=== PATIENT | female | born 1940 | race Caucasian/White ===

== ENCOUNTER 2016-09-24 16:55 | Emergency (ER) | payer MEDICARE ==
[2016-09-24 17:48] VITALS: BP 114/62
--- NOTE | 2016-09-24 18:23 | UC ---
Skin Complaint HPI - HPI Summary HPI Summary: 76 y/o female presents to the urgent care c/o of a rash in her RT thigh since last last night. Pt reports her symptoms started 4 days ago with MICHAELS, fatigue and 1 episode of vomiting yesterday. She has taking Alive and symptoms have improve. Now she is concern with Lyme. She can only recall a tick bite 1 year ago. Pt denies fever, SOB, chest pain, diarrhea, urinary symptoms. Pt has not other complains. - History of Current Complaint Chief Complaint: UCGeneralIllness Time Seen by Provider: 09/24/16 18:07 Stated Complaint: FEVER,HEADACHE,BUG BITE W RASH Hx Obtained From: Patient Hx Last Menstrual Period: menopausal ?: No Onset/Duration: Sudden Onset, Lasting Days, Still Present Skin Exposure Onset/Duration: Days Ago Timing: Constant Onset Severity: Mild Current Severity: Moderate Pain Intensity: 0 Pain Scale Used: 0-10 Numeric Location: Other - RT upper thigh with a circular rash. Character: Swelling - mild, Redness Aggravating: Nothing Alleviating: Nothing - Allergy/Home Medications Allergies/Adverse Reactions: Allergies Allergy/AdvReac Type Severity Reaction Status Date / Time No Known Allergies Allergy Verified 09/24/16 17:42 Home Medications: Home Medications Naproxen Sodium [Naproxen Sodium 220 mg] 440 mg PO 09/24/16 [History] Review of Systems Constitutional: Fatigue Skin: Rash - on RT thigh Eyes: Negative ENT: Negative Respiratory: Negative Cardiovascular: Negative Gastrointestinal: Negative Genitourinary: Negative Motor: Negative Neurovascular: Negative Musculoskeletal: Arthralgia Neurological: Headache - past 3 days Psychological: Negative All Other Systems Reviewed And Are Negative: Yes PMH/Surg Hx/FS Hx/Imm Hx Previously Healthy: Yes - Surgical History Surgical History: None - Family History Known Family History: Positive: None - Social History Occupation: Retired Lives: With Family Alcohol Use: Weekly Substance Use Type: None Smoking Status (MU): Never Smoked Tobacco Physical Exam Triage Information Reviewed: Yes Appearance: Well-Appearing, No Pain Distress, Well-Nourished Vital Signs: Initial Vital Signs Temp 98.6 F 09/24/16 17:37 Pulse 73 09/24/16 17:37 Resp 18 09/24/16 17:37 BP 114/62 09/24/16 17:37 Pulse Ox 97 09/24/16 17:37 Vital Signs Reviewed: Yes Eye Exam: Normal Eyes: Positive: Conjunctiva Clear - PERRLA, EOMI, fundi grossly normal ENT Exam: Normal ENT: Positive: Normal ENT inspection, Pharynx normal, TMs normal Dental Exam: Normal Neck exam: Normal Neck: Positive: Supple, Nontender, No Lymphadenopathy Respiratory Exam: Normal Respiratory: Positive: Chest non-tender, Lungs clear, Normal breath sounds Cardiovascular Exam: Normal Cardiovascular: Positive: RRR, No Murmur, Pulses Normal, Brisk Capillary Refill Abdominal Exam: Normal Abdomen Description: Positive: Nontender, No Organomegaly, Soft. Negative: CVA Tenderness (R), CVA Tenderness (L) Bowel Sounds: Positive: Present Musculoskeletal Exam: Normal Musculoskeletal: Positive: Strength Intact, ROM Intact, No Edema Neurological Exam: Normal Neurological: Positive: Alert - A&Ox3 Psychological Exam: Normal Skin: Positive: rashes - RT thight with erythematous patche w/ central clearing , classical bull's eye eruption. non tender to palpation. Size [id number]. Course/Dx - Course Course Of Treatment: 76 y/o female presents to the urgent care c/o of a rash in her RT thigh since last last night. Pt reports her symptoms started 4 days ago with MICHAELS, fatigue and 1 episode of vomiting yesterday. She has taking Alive and symptoms have improve. Now she is concern with Lyme. She can only recall a tick bite 1 year ago. Pt denies fever, SOB, chest pain, diarrhea, urinary symptoms. Hx obtained. PE abnormal findings:RT thight with erythematous patche w/ central clearing, classical bull's eye eruption. non tender to palpation. Size [id number]. Most likely Erythema Migrans. Lyme Serology ordered. Pt Rx Doxycycline 100mg PO BID x 21 days. Advised even if Lyme Serology returns negative to take full course of ABX. F/u with PCP for further evaluation and treatment. Pt understood and agreed. Left the clinic ambulating. - Differential Diagnoses - Skin Complaint Differential Diagnoses: Allergic Reaction, Cellulitis, MRSA, Tick Born Illness, Urticaria - Diagnoses Provider Diagnoses: 1-Lyme disease Discharge - Discharge Plan Condition: Stable Disposition: HOME Prescriptions: DOXYcycline CAP(*) [DOXYcycline 100MG CAP(*)] 100 mg PO BID #42 cap Patient Education Materials: Lyme Disease (ED) Referrals: Salomon Del Valle MD [Primary Care Provider] - 2 Weeks Additional Instructions: Please take medications as instructed and finish the full course of treatment despite lab result. F/u with your PCP for further evaluation and treatment. You will receive a call from as with the results. Continue taking Advil prn if Headache returns.
[2016-09-24] MEDS ORDERED: DOXYcycline CAP(*) 100 MG PO ONE (18:30)
[2016-09-27 12:11] LABS: Lyme Disease IgG Ab WB Negative (Negative)
== END 2016-09-24 18:44 | disposition home or self-care (01) ==
LOC: UCEAST 16:55
DX: A69.20 Lyme disease, unspecified (principal)
CPT/HCPCS: 86617; 86618; 99212; A9270-GY; G0463

== ENCOUNTER 2017-12-24 10:04 | Emergency (ER) | payer MEDICARE ==
[2017-12-24 10:16] VITALS: BP 108/64
[2017-12-24] MEDS ORDERED: Tetan/Diph/Pertus SYR(Tdap)* 0.5 ML SYR(BOOSTRIX) use SYR IM ONE (11:59)
--- NOTE | 2017-12-24 12:06 | ED ---
Skin Complaint - HPI Summary HPI Summary: Patient presents with small area of red irritation in her Rt breast/axillary region. She felt something on her skin last night and scratched the area but didn't notice the redness until this morning. She admits this area is tough to visualize herself and is not sure what is in the area. She reports it's a little tender since scratching but otherwise no pain. Denies fever, chills, tenderness radiating into her breast or armpit. She does have a history of Lyme disease which was treated with doxycycline in the past - had a skin reaction to the doxycycline then. She did not have a witnessed tick bite at that time however she did develop a headache followed by an erythema migrans rash. This was treated successfully to the best of her knowledge. She is unsure of her last tetanus vaccine but believes it is been greater than 5 years. - History of Current Complaint Chief Complaint: UCSkin Time Seen by Provider: 12/24/17 11:43 Stated Complaint: SKIN IRRITATION Hx Obtained From: Patient Hx Last Menstrual Period: menopausal Pain Intensity: 0 - Allergy/Home Medications Allergies/Adverse Reactions: Allergies Allergy/AdvReac Type Severity Reaction Status Date / Time doxycycline Allergy Rash Verified 12/24/17 10:17 Home Medications: Home Medications NK [No Home Medications Reported] 12/24/17 [History Confirmed 12/24/17] PMH/Surg Hx/FS Hx/Imm Hx Previously Healthy: Yes Endocrine/Hematology History: Denies: Hx Anticoagulant Therapy, Hx Blood Disorders, Autoimmune Disease - Immunization History Immunizations Up to Date: Unable to Obtain/Confirm Infectious Disease History: Yes Infectious Disease History: Reports: History Other Infectious Disease - Lyme - tx'd Denies: Hx of Known/Suspected MRSA, Traveled Outside the [place] in Last 30 Days - Family History Known Family History: Positive: None - Social History Occupation: Retired Lives: With Family Alcohol Use: Weekly - wine Hx Substance Use: No Substance Use Type: Reports: None Hx Tobacco Use: No Smoking Status (MU): Never Smoked Tobacco Review of Systems Constitutional: Negative Negative: Fever, Chills, Fatigue Negative: Chest Pain Negative: Shortness Of Breath Positive: no symptoms reported Musculoskeletal: Negative Positive: Rash Neurological: Negative Psychological: Normal All Other Systems Reviewed And Are Negative: Yes Physical Exam Triage Information Reviewed: Yes Vital Signs On Initial Exam: Initial Vitals Temp Pulse Resp BP Pulse Ox 97.7 F 72 18 108/64 100 12/24/17 10:13 12/24/17 10:13 12/24/17 10:13 12/24/17 10:13 12/24/17 10:13 Vital Signs Reviewed: Yes Appearance: Positive: Well-Appearing, No Pain Distress, Well-Nourished Skin: Positive: Warm, Skin Color Reflects Adequate Perfusion, Dry - 3mm area of kailey purpura over RT breast/axillary region - appears to have a tick imbedded in skin here - arms and legs moving - does not appear engorged - no streaking, NTTP Head/Face: Positive: Normal Head/Face Inspection Eyes: Positive: EOMI ENT: Positive: Hearing grossly normal Respiratory/Lung Sounds: Positive: Breath Sounds Present Musculoskeletal: Positive: Normal, Strength/ROM Intact Neurological: Positive: Normal, Sensory/Motor Intact, Alert, Oriented to Person Place, Time, CN Intact II-III Psychiatric: Positive: Normal Diagnostics - Vital Signs Vital Signs Temp Pulse Resp BP Pulse Ox 12/24/17 10:13 97.7 F 72 18 108/64 100 - Laboratory Lab Statement: Any lab studies that have been ordered have been reviewed, and results considered in the medical decision making process. Re-Evaluation - Re-Evaluation First Eval Change: Improved - tick removed successfully w/o issues Course/Dx - Diagnoses Provider Diagnoses: Tick bite of chest wall Discharge - Sign-Out/Discharge Documenting (check all that apply): Patient Departure All imaging exams completed and their final reports reviewed: No Studies - Discharge Plan Condition: Stable Disposition: HOME Patient Education Materials: Tick Bite (ED) Referrals: Salomon Del Valle MD [Primary Care Provider] - Additional Instructions: Tick was successfully removed today and was on for about 24 hours - discussed doxycycline prophylaxis but with short course of implantation and previous reaction to doxycycline, we decided to avoid this treatment today. Continue to monitor for symptoms and follow-up with PCP as needed. - Billing Disposition and Condition Condition: STABLE Disposition: Home
== END 2017-12-24 12:14 | disposition home or self-care (01) ==
LOC: UCEAST 10:04
DX: S20.361A Insect bite (nonvenomous) of right front wall of thorax, initial encounter (principal); A69.20 Lyme disease, unspecified; W57.XXXA Bitten or stung by nonvenomous insect and other nonvenomous arthropods, initial encounter; Y92.9 Unspecified place or not applicable; Z88.1 Allergy status to other antibiotic agents
CPT/HCPCS: 90471; 90715; 99211; G0463